=== PATIENT | female | born 1960 | race Caucasian/White ===

== ENCOUNTER 2020-11-07 14:49 | Observation (INO) | payer MEDICARE ==
[~2020-11-07] VITALS: Ht 154.9 cm; Wt 69.7 kg
[2020-11-07] MEDS ORDERED: CLONI1TA PO (15:14)
[2020-11-07] MEDS ORDERED: EPIP0.3I2 INJ (15:14)
[2020-11-07] MEDS ORDERED: ALBU83IN NEB (15:14)
[2020-11-07] MEDS ORDERED: HYDR12.55 PO (15:14)
[2020-11-07] MEDS ORDERED: ZOLO50TA PO (15:14)
[2020-11-07] MEDS ORDERED: ZOLO100T PO (15:14)
[2020-11-07] MEDS ORDERED: MIRT1TAB16 PO (15:14)
[2020-11-07] MEDS ORDERED: ONDANSETRON 4MG/2ML VIAL IV ONE (17:20)
[2020-11-07 17:30] LABS: BASO # 0.1 10^3/uL (0.0-0.2); BASO % 0.9 % (0.0-1.0); EOS # 0.3 10^3/uL (0.0-0.5); EOS % 4.5 % (0.0-3.0); HEMATOCRIT 42.6 % (36.0-47.0); LYMPH # 2.2 10^3/uL (1.5-5.0); LYMPH % 37.5 % (24.0-44.0); MEAN CORPUSCULAR HEMOGLOBIN 31.1 pg (27.0-33.0); MEAN CORPUSCULAR HGB CONC 32.9 g/dl (32.0-36.5); MEAN CORPUSCULAR VOLUME 94.7 fl (80.0-96.0); MONO # 0.6 10^3/uL (0.0-0.8); MONO % 9.6 % (2.0-8.0); NEUTROPHILS # 2.7 10^3/uL (1.5-8.5); NEUTROPHILS % 47.2 % (36.0-66.0); PLATELET COUNT, AUTOMATED 312 10^3/uL (150-450); WHITE BLOOD COUNT 5.8 10^3/uL (4.0-10.0)
[2020-11-07 17:41] LABS: ALBUMIN 3.7 GM/DL (3.2-5.2); ALT/SGPT 54 U/L (12-78); BILIRUBIN,DIRECT < 0.1 MG/DL (0.0-0.2); BILIRUBIN,TOTAL 0.4 MG/DL (0.2-1.0); BLOOD UREA NITROGEN 11 MG/DL (7-18); CALCIUM LEVEL 9.9 MG/DL (8.8-10.2); CARBON DIOXIDE LEVEL 27 MEQ/L (21-32); CHLORIDE LEVEL 104 MEQ/L (98-107); CREATININE FOR GFR 0.64 MG/DL (0.55-1.30); GLOMERULAR FILTRATION RATE > 60.0 (>45); GLUCOSE, FASTING 86 MG/DL (70-100); LIPASE 63 U/L (73-393); POTASSIUM SERUM 4.8 MEQ/L (3.5-5.1); SODIUM LEVEL 137 MEQ/L (136-145); TOTAL PROTEIN 7.6 GM/DL (6.4-8.2)
[2020-11-07] MEDS ORDERED: NS 1,000 ML IV SCH (17:55)
[2020-11-07] MEDS ORDERED: ISOVUE-370 76% 100ML VIAL As Ordered ONE (18:03)
[2020-11-07] MEDS: fentaNYL 100 MCG/2 ML INJECTION (J3010) IV PRN ×2 (18:11→21:37)
[2020-11-07] MEDS: GASTROGRAFIN SOLUTION 30ML PO SCH ×2 (18:50→18:54)
[2020-11-07] MEDS ORDERED: ALBUTEROL SULFATE 2.5 MG/0.5 ML INH NEB SOLN INH ONE (19:05)
[2020-11-07] MEDS ORDERED: methylPREDNISolone 125MG 2ML VIAL IV ONE (19:05)
[2020-11-07] MEDS ORDERED: diphenhydrAMINE 50MG/ML VIAL (J1200) IV ONE (19:05)
--- NOTE | 2020-11-07 19:11 | REP ---
INDICATION: r/o SBO. COMPARISON: None. TECHNIQUE: PA chest and two view abdomen FINDINGS: PA chest: Lungs well inflated without pleural effusion or acute infiltrate. No apical scarring or parenchymal mass. The heart, mediastinal and hilar contours were normal. The aorta and airway intact. There has been prior anterior cervical fusion with plate and screw fixation and disc spacer. Degenerative changes in the thoracic spine and shoulders. No free air under the diaphragm. Two-view abdomen: Gas pattern is nonspecific. Stool and gas seen in the colon without dilated bowel loops, air-fluid levels, mass or free air. Bones show extensive spondylosis with marginal osteophytes throughout the lower thoracic and lumbar spines. No definite compression fractures. There is disc space narrowing at L4-5 with vacuum phenomenon. No abnormal calcifications over the renal fossa the or expected course of the ureters. Multiple pelvic phleboliths on each side of the true pelvis. Sacral ala and foramina symmetric SI joints intact iliac wings unremarkable. The right hip shows minor degenerative change. There is a left total hip arthroplasty. IMPRESSION: 1. Nonspecific gas pattern, no sign of obstruction, mass or free air. No abnormal calcification overlying expected urinary tract location. No visible mass. 2. Degenerative changes throughout the spine and mild at the hip on the right. A left total hip arthroplasty seen. 3. PA chest without acute finding. <Electronically signed by Tenzin Ramos > 11/07/20 [id number]
[2020-11-07] MEDS: COMBIVENT RESPIMAT 100-20MCG INHALER 4GM INH SCH (20:00)
--- NOTE | 2020-11-07 20:52 | REPVR ---
PROCEDURE INFORMATION: Exam: CT Abdomen And Pelvis With Contrast Exam date and time: 11/07/2020 8:03 PM Age: 60 years old Clinical indication: Other: Abd pain R/O sbo; HX 12 abd surgeries TECHNIQUE: Imaging protocol: Computed tomography of the abdomen and pelvis with contrast. Radiation optimization: All CT scans at this facility use at least one of these dose optimization techniques: automated exposure control; mA and/or kV adjustment per patient size (includes targeted exams where dose is matched to clinical indication); or iterative reconstruction. Contrast material: ISOVUE 370; Contrast volume: 100 ml; Contrast route: INTRAVENOUS (IV); COMPARISON: CR Abdomen,Flat Upright,PA CHEST 11/07/2020 5:28 PM FINDINGS: Limitations: Evaluation of the lower pelvis is suboptimally visualized secondary to artifact from a left total hip prosthesis. Liver: Unremarkable. No mass. Gallbladder and bile ducts: Unremarkable. No calcified stones. No ductal dilation. Pancreas: Unremarkable. No ductal dilation. Spleen: Unremarkable. No splenomegaly. Adrenal glands: Normal. No mass. Kidneys and ureters: 10 mm cyst in the left kidney midpole. No left renal stone or hydronephrosis. Normal right kidney and right ureter. Stomach and bowel: Tiny gastric hiatus hernia. The small bowel and colon are unremarkable. No bowel obstruction. Appendix: No evidence of appendicitis. Intraperitoneal space: Unremarkable. No free air. No significant fluid collection. Vasculature: Mild atherosclerosis of the abdominal aorta and branch vessels. No aneurysm. Lymph nodes: Unremarkable. No enlarged lymph nodes. Urinary bladder: Unremarkable as visualized. Reproductive: Probable previous hysterectomy (versus severe uterine atrophy). No adnexal mass. Bones/joints: Degenerative changes throughout the lower thoracic and lumbar spine. No acute fracture. Left total hip prosthesis resulting in artifact which slightly limits evaluation of the lower pelvis and portions of the urinary bladder. Soft tissues: Unremarkable. IMPRESSION: No acute abnormality. COMMENTS: Consistent with the [employer]'s Incidental Findings Committee white paper (J Am Ovidio Radiol 2018): Any incidental renal lesion less than 1 cm or classified as too small to characterize, or any incidental cystic renal lesion characterized as simple-appearing, is likely benign. No follow-up imaging is recommended for these lesions per consensus recommendations based on imaging criteria. Electronically signed by: Gregg Feng On 11/07/2020 20:52:04 PM
[2020-11-07 23:36] LABS: RSV AMPLIFICATION NEGATIVE (NEGATIVE)
[2020-11-07] MEDS ORDERED: TRAM50TA2 PO (23:52)
[2020-11-07] MEDS ORDERED: HYDR-3490 PO (23:52)
[2020-11-07] MEDS ORDERED: DIPH25CA32 PO (23:52)
[2020-11-07] MEDS ORDERED: PROP20TA72 PO (23:52)
[2020-11-07] MEDS ORDERED: VITA-256 PO (23:52)
[2020-11-07] MEDS ORDERED: COMBAER6 INH (23:52)
[2020-11-07] MEDS ORDERED: ALBU8.5H INH (23:52)
[2020-11-07] MEDS ORDERED: MIRT-60 PO (23:52)
[2020-11-08] MEDS ORDERED: ALBUTEROL 90 MCG/ACT 8GM HFA INHALER INH PRN
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
[2020-11-08] MEDS: MIRTAZAPINE 15 MG TAB PO SCH ×2 (00:27→21:08)
[2020-11-08] MEDS: cloNIDine 0.1MG TABLET PO SCH ×4 (00:27→21:08)
[2020-11-08] MEDS: ONDANSETRON 4MG/2ML VIAL IV PRN ×3 (00:28→19:53)
[2020-11-08] MEDS: MORPHINE 4 MG/ML 1ML VIAL/SYRINGE (J2270) IV PRN ×3 (00:28→06:02)
[2020-11-08] MEDS: NS 1,000 ML IV SCH ×2 (00:30→12:15)
[2020-11-08] MEDS: SERTRALINE 100 MG TAB PO SCH ×3 (01:38→21:07)
[2020-11-08] MEDS: PROPRANOLOL 20 MG TAB PO SCH ×3 (04:09→21:09)
[2020-11-08 07:47] LABS: HEMATOCRIT 39.6 % (36.0-47.0); LYMPH # 0.8 10^3/uL (1.5-5.0); LYMPH % 11.3 % (24.0-44.0); MEAN CORPUSCULAR HEMOGLOBIN 31.3 pg (27.0-33.0); MEAN CORPUSCULAR HGB CONC 32.8 g/dl (32.0-36.5); MEAN CORPUSCULAR VOLUME 95.2 fl (80.0-96.0); MONO # 0.1 10^3/uL (0.0-0.8); MONO % 1.6 % (2.0-8.0); NEUTROPHILS # 6.1 10^3/uL (1.5-8.5); NEUTROPHILS % 86.8 % (36.0-66.0); PLATELET COUNT, AUTOMATED 261 10^3/uL (150-450); RED BLOOD COUNT 4.16 10^6/uL (4.00-5.40); WHITE BLOOD COUNT 7.1 10^3/uL (4.0-10.0)
[2020-11-08] MEDS: COMBIVENT RESPIMAT 100-20MCG INHALER 4GM INH SCH ×2 (07:57→19:49)
[2020-11-08 08:22] LABS: ALBUMIN 3.2 GM/DL (3.2-5.2); ALT/SGPT 40 U/L (12-78); BILIRUBIN,TOTAL 0.3 MG/DL (0.2-1.0); BLOOD UREA NITROGEN 10 MG/DL (7-18); CALCIUM LEVEL 8.4 MG/DL (8.8-10.2); CARBON DIOXIDE LEVEL 27 MEQ/L (21-32); CHLORIDE LEVEL 110 MEQ/L (98-107); CREATININE FOR GFR 0.53 MG/DL (0.55-1.30); GLOMERULAR FILTRATION RATE > 60.0 (>45); GLUCOSE, FASTING 122 MG/DL (70-100); MAGNESIUM LEVEL 2.1 MG/DL (1.8-2.4); POTASSIUM SERUM 3.8 MEQ/L (3.5-5.1); SODIUM LEVEL 142 MEQ/L (136-145); TOTAL PROTEIN 6.2 GM/DL (6.4-8.2)
--- NOTE | 2020-11-08 08:52 | IPNPDOC ---
Text Note Date of Service The patient was seen on 11/08/20. NOTE S: Pt seen at bedside. Reports additional intermittent sharp left-sided abd pain that radiates up to her rib cage, down to her groin, and across to her left flank. She tells me her generalized abd pain on admission has not changed, and describes this as intermittent abd pressure and tightening. Reports nausea appropriately controlled w/ zofran. She tells me she has not passed gas or stool. Reports improved abd distension. Denies difficulty voiding, vomiting. O: GEN: NAD, alert, laying in bed HEENT: Dry mucous membranes, NC/AT, EOMI, nasal cannula in place CARDIO: normal heart sounds, RRR, no MRG PULM: wheezing b/l, no RR, no accessory muscles used ABD: soft, non distended, generalized tenderness w/ deep palpation w/out rebou nd, normal BS MSK: no edema, 2+ pulses b/l, normal ROM Imaging: Abd xray 11/07/20: 1. Nonspecific gas pattern, no sign of obstruction, mass or free air. No abn ormal calcification overlying expected urinary tract location. No visible mass. 2. Degenerative changes throughout the spine and mild at the hip on the right. A left total hip arthroplasty seen. 3. PA chest without acute finding. CT abd/pelvis 11/07/20: No acute abnormality Abd xray 11/08/20: Nonspecific intestinal gas pattern. A/P: 60F from [place] hx multiple abd surgeries w/ worsening generalized abd pain that has not resolved w/ pain meds. #Acute on Chronic - Generalized abd pain - History of multiple abdominal surgeries - no leukocytosis / no lactic acidosis - Lipase wnl - Imaging noted above - Repeat abd xray insignificant Continue Zofran - D/c morphine; Start Bentyl #HTN Continue HCTZ #Asthma Continue home inhalers #Anxiety Continue home meds #Arthritis Continue home meds #DVT Prophylaxis Lovenox Clear liquids diet Activity as tolerated DISPO: home, pending clinical improvement VS,Fishbone, I+O VS, Fishbone, I+O Laboratory Tests 11/07/20 16:54 11/07/20 17:16 11/08/20 07:25 Vital Signs Date Time Temp Pulse Resp B/P (MAP) Pulse Ox O2 Delivery O2 Flow Rate FiO2 11/08/20 06:05 65 94 11/08/20 06:02 18 Nasal Cannula 2.0 11/08/20 06:00 97.3 91/67 (75) GME ATTESTATION GME ATTESTATION My faculty preceptor for this patient encounter was physically present during the encounter and was fully available. All aspects of the patient interview, examination, medical decision making process, and medical care plan development were reviewed and approved by the faculty preceptor. The faculty preceptor is aware and concurs with the plan as stated in the body of this note and will atte st to such by his/her cosignature. ATTENDING NOTE I, Tatiana Gonsalez, have independently examined this patient and performed my own physical exam, as well as reviewed the documentation and edited where necessary. I have discussed in detail with the resident / student the findings and plan of treatment as documented by the resident / student and edited their note. I agree with their findings and treatment plan and have edited their documentation. I will continue to follow the patient during this hospital stay. Anitra Chapman DO Nov 08, 2020 08:52 TATIANA GONSALEZ MD Nov 08, 2020 12:35
[2020-11-08] MEDS: ENOXAPARIN 40MG/0.4ML SYRINGE (J1650 PER 10MG) SC SCH (09:23)
[2020-11-08] MEDS: traMADol 50 MG TAB PO PRN (09:24)
[2020-11-08] MEDS ORDERED: DICYCLOMINE 10 MG CAP PO PRN (09:45)
--- NOTE | 2020-11-08 10:53 | REP ---
INDICATION: abd pain. COMPARISON: None. TECHNIQUE: Three views FINDINGS: Supine and upright views of the abdomen show the intestinal gas pattern to be nonspecific. Gas and stool is seen throughout the colon within the rectosigmoid region. The organ silhouettes insofar as delineated appear unremarkable. A small amount of retained contrast from previous CT is seen in the colon. There is partial urinary bladder contrast opacification secondary to the intravenous injection which was performed for that CT. The accompanying single frontal view of the chest shows no free subdiaphragmatic air, cardiomegaly, infiltrates or effusions. IMPRESSION: Nonspecific intestinal gas pattern. <Electronically signed by Geovany Franklin > 11/08/20 1048
[2020-11-08 14:48] VITALS: BP 109/66
[2020-11-08] MEDS: DICYCLOMINE 10 MG CAP PO PRN ×2 (17:02→21:07)
[2020-11-08 22:00] VITALS: BP 120/85
--- NOTE | 2020-11-08 23:51 | ECGEPIP ---
[facility] Test Date: 2020-11-08 Pat Name: RENETTA FRIAS Department: Room: [place] [address] Gender: Female Manager Service Desk: SHEBA : 1960 Requested By: Anitra De Luna Order Number: [id number] Reading MD: Axel Rehman Measurements Intervals [place] Rate: 63 P: 76 [place]: 166 QRS: 52 QRSD: 82 T: 57 QT: 422 QTc: 431 Interpretive Statements Normal sinus rhythm with sinus arrhythmia No prior tracing in the system Electronically Signed on 11-08-2020 23:51:17 EDT by Axel Rehman
[2020-11-09] MEDS: DICYCLOMINE 10 MG CAP PO PRN ×2 (01:11→05:16)
[2020-11-09] MEDS: ONDANSETRON 4MG/2ML VIAL IV PRN (05:16)
[2020-11-09 06:00] VITALS: BP 107/67
[2020-11-09 06:59] LABS: HEMATOCRIT 37.8 % (36.0-47.0); HEMOGLOBIN 12.6 g/dl (12.0-15.5); MEAN CORPUSCULAR HEMOGLOBIN 32.1 pg (27.0-33.0); MEAN CORPUSCULAR HGB CONC 33.3 g/dl (32.0-36.5); MEAN CORPUSCULAR VOLUME 96.4 fl (80.0-96.0); PLATELET COUNT, AUTOMATED 245 10^3/uL (150-450); RED BLOOD COUNT 3.92 10^6/uL (4.00-5.40); WHITE BLOOD COUNT 5.6 10^3/uL (4.0-10.0)
[2020-11-09 07:26] LABS: ALBUMIN 2.9 GM/DL (3.2-5.2); ALT/SGPT 37 U/L (12-78); BILIRUBIN,TOTAL 0.3 MG/DL (0.2-1.0); BLOOD UREA NITROGEN 10 MG/DL (7-18); CALCIUM LEVEL 8.2 MG/DL (8.8-10.2); CARBON DIOXIDE LEVEL 28 MEQ/L (21-32); CHLORIDE LEVEL 110 MEQ/L (98-107); CREATININE FOR GFR 0.64 MG/DL (0.55-1.30); GLOMERULAR FILTRATION RATE > 60.0 (>45); GLUCOSE, FASTING 88 MG/DL (70-100); POTASSIUM SERUM 3.4 MEQ/L (3.5-5.1); SODIUM LEVEL 144 MEQ/L (136-145); TOTAL PROTEIN 6.1 GM/DL (6.4-8.2)
[2020-11-09] MEDS: COMBIVENT RESPIMAT 100-20MCG INHALER 4GM INH SCH (07:43)
[2020-11-09] MEDS ORDERED: POTASSIUM CHLORIDE 10 MEQ SR TABLET PO ONE (08:35)
[2020-11-09] MEDS: SERTRALINE 100 MG TAB PO SCH (08:49)
[2020-11-09] MEDS: ENOXAPARIN 40MG/0.4ML SYRINGE (J1650 PER 10MG) SC SCH (08:49)
--- NOTE | 2020-11-09 08:58 | DS.PDOC ---
Discharge Summary General Date of Admission Nov 07, 2020 at 23:57 Date of Discharge 11/09/20 Attending Physician: TATIANA GONSALEZ MD Discharge Summary PROCEDURES PERFORMED DURING STAY: None ADMITTING DIAGNOSES / DISCHARGE DIAGNOSES: Acute on chronic generalized abd pain Asthma Anxiety and Depression Hypertension History of small bowel obstruction multiple times DVT prophylaxis COMPLICATIONS/CHIEF COMPLAINT: Abdominal Pain. HISTORY OF PRESENT ILLNESS: Aleksandra is 60F visiting from [place], [facility] significant for multiple abdominal surgeries, who presented to ED w/ worsening generalized abdominal pain for the past week. Described pain as achy, intermittent, 3-10/10, greater on left than right. Reported n/v, prior episodes related to bowel obstruction. Denied fevers/chills. HOSPITAL COURSE: #Acute on Chronic generalized abdominal pain - History of multiple abdominal surgeries - No leukocytosis / no lactic acidosis - Lipase wnl - Imaging noted above without any acute findings - Repeat abd xray insignificant - c/w symptomatic control with Zofran and Bentyl - s/p Morphine - Will have outpatient follow-up with primary care provider, and general surgery in [place] within the next 7 days #HTN Continue HCTZ #Asthma Continue home inhalers #Anxiety Continue home meds #Arthritis Continue home meds #DVT Prophylaxis - c/w Lovenox DISCHARGE MEDICATIONS: Please see below. ALLERGIES: Please see below. PHYSICAL EXAMINATION ON DISCHARGE: VITAL SIGNS: Please see below. GENERAL: laying in bed, alert and awake, NAD HEENT: NC/AT, EOMI, nares patent, moist mucous membranes NECK: supple no lymphadenopathy CARDIOVASCULAR EXAMINATION: normal heart sounds, RRR, no MRG RESPIRATORY EXAMINATION: wheezing upper lobes b/l, no RR, no accessory muscles used ABDOMINAL EXAMINATION: normal BS, generalized tenderness w/ deep palpation, soft, nondistended EXTREMITIES: no edema SKIN: no rashes/bruising/wounds NEUROLOGICAL EXAMINATION: no FND PSYCHIATRIC EXAMINATION: AOx3, normal mood/affect LABORATORY DATA: Please see below. IMAGING: Abd xray 11/07/20: 1. Nonspecific gas pattern, no sign of obstruction, mass or free air. No abnormal calcification overlying expected urinary tract location. No visible mass. 2. Degenerative changes throughout the spine and mild at the hip on the right. A left total hip arthroplasty seen. 3. PA chest without acute finding. CT abd/pelvis w/ IV and PO contrast 11/07/20: No acute abnormality Abd xray 11/08/20: Nonspecific intestinal gas pattern. PROGNOSIS: Good ACTIVITY: As tolerated DIET: Low residue DISCHARGE PLAN: Follow up with primary care provider within 7 days Remain compliant with treatment plan and medications Return to the ER if you experience any problems DISPOSITION: Home DISCHARGE CONDITION: Stable TIME SPENT ON DISCHARGE: 35 minutes. Vital Signs/I&Os Vital Signs Date Time Temp Pulse Resp B/P (MAP) Pulse Ox O2 Delivery O2 Flow Rate FiO2 11/09/20 06:00 98.2 71 17 107/67 (80) 92 Room Air 11/08/20 06:02 2.0 I&O- Last 24 Hours up to 6 AM 11/09/20 06:00 Intake Total 3410 ml Output Total 1350 ml Balance 2060 ml Laboratory Data Labs 24H Laboratory Tests 2 11/09/20 06:47: Nucleated Red Blood Cells % (auto) 0.0, Anion Gap 6L, Glomerular Filtration Rate > 60.0, Calcium Level 8.2L, Total Bilirubin 0.3, Aspartate Amino Transf (AST/SGOT) 25, Alanine Aminotransferase (ALT/SGPT) 37, Alkaline Phosphatase 61, Total Protein 6.1L, Albumin 2.9L, Albumin/Globulin Ratio 0.9L CBC/BMP Laboratory Tests 11/09/20 06:47 Discharge Medications Scheduled Cholecalciferol (Vitamin D3) (Vitamin D3) 25 Mcg Tab.chew, 25 MCG PO BID, (Reported) Clonidine Hcl (Clonidine HCl) 0.1 Mg Tablet, 0.1 MG PO BID, (Reported) Hydrochlorothiazide (Hydrochlorothiazide) 25 Mg Tablet, 25 MG PO DAILY, (Reported) Ipratropium/Albuterol Sulfate (Combivent Respimat 20-100 Mcg) 4 Gm Mist.inhal, 1 PUFF INH BID, (Reported) Mirtazapine (Remeron) 30 Mg Tablet, 30 MG PO QHS, (Reported) Ondansetron HCl (Zofran) 4 Mg Tablet, 4 MG PO Q6H Propranolol HCl (Propranolol HCl) 20 Mg Tablet, 20 MG PO BID, (Reported) Sertraline Hcl (Zoloft) 100 Mg Tablet, 100 MG PO BID, (Reported) Scheduled PRN Albuterol Sulfate (Albuterol Sulfate Hfa) 8.5 Gm Hfa.aer.ad, 2 PUFFS INH Q4-6HP PRN for SOB/WHEEZING, (Reported) Dicyclomine HCl (Dicyclomine HCl) 10 Mg Capsule, 10 MG PO Q4HP PRN for CRAMPS Diphenhydramine HCl (Diphenhydramine HCl) 25 Mg Capsule, 25 MG PO Q6H PRN for ALLERGIC REACTION, (Reported) Epinephrine (Epipen 2-Nik) 0.3 Mg/0.3 Ml Auto.injct, 0.3 MG INJ DAILY PRN for ANAPHYLAXIS, (Reported) Tramadol HCl (Tramadol HCl) 50 Mg Tablet, 50 MG PO DAILY PRN for OSTEOARTHRITIS, (Reported) Allergies Coded Allergies: Influenza Virus Vaccines (Unverified Allergy, Severe, anaphylaxis from banana allergy, 11/08/20) TAPE (Verified Allergy, Severe, anaphylaxis, 11/07/20) banana (Verified Allergy, Severe, anaphylaxis, 11/07/20) bee pollen (Verified Allergy, Severe, anaphylaxis, 11/07/20) latex (Verified Allergy, Severe, anaphylaxis, 11/07/20) Sulfa (Sulfonamide Antibiotics) (Verified Allergy, Intermediate, hives, 11/07/20) codeine (Verified Allergy, Intermediate, itching , 11/07/20) erythromycin base (Verified Allergy, Intermediate, 11/07/20) unknown reaction per pt. GME ATTESTATION GME ATTESTATION My faculty preceptor for this patient encounter was physically present during the encounter and was fully available. All aspects of the patient interview, examination, medical decision making process, and medical care plan development were reviewed and approved by the faculty preceptor. The faculty preceptor is aware and concurs with the plan as stated in the body of this note and will attest to such by his/her cosignature. ATTENDING NOTE I, Tatiana Gonsalez, have independently examined this patient and performed my own physical exam, as well as reviewed the documentation and edited where necessary. I have discussed in detail with the resident / student the findings and plan of treatment as documented by the resident / student and edited their note. I agree with their findings and treatment plan and have edited their documentation. I will continue to follow the patient during this hospital stay. Anitra Chapman DO Nov 09, 2020 08:58 TATIANA GONSALEZ MD Nov 09, 2020 14:28
[2020-11-09 08:59] VITALS: BP 120/68
[2020-11-09] MEDS: cloNIDine 0.1MG TABLET PO SCH (08:59)
[2020-11-09] MEDS: PROPRANOLOL 20 MG TAB PO SCH (09:00)
[2020-11-09] MEDS ORDERED: ZOFR4TAB16 PO (10:22)
[2020-11-09] MEDS ORDERED: DICY1CAP8 PO (10:22)
[2020-11-09] MEDS: traMADol 50 MG TAB PO PRN (12:07)
== END 2020-11-09 13:35 | disposition home or self-care (01) ==
LOC: M ED 14:49 → M ED INP 23:57 → ENRESERV 11-08 14:15 → M MSPAV 11-08 14:47
PROVIDERS: ADMIT Family Medicine; ATTEND Internal Medicine
DX: R10.84 Generalized abdominal pain (principal); J45.909 Unspecified asthma, uncomplicated; I10 Essential (primary) hypertension; F32.9 Major depressive disorder, single episode, unspecified; F41.9 Anxiety disorder, unspecified; Z87.19 Personal history of other diseases of the digestive system; Z79.899 Other long term (current) drug therapy; Z88.7 Allergy status to serum and vaccine; Z91.018 Allergy to other foods; Z91.030 Bee allergy status; Z91.040 Latex allergy status; Z88.2 Allergy status to sulfonamides; Z88.5 Allergy status to narcotic agent; Z88.1 Allergy status to other antibiotic agents
CPT/HCPCS: 36415; 74021; 74177; 80048; 80053; 80076; 83605; 83690; 83735; 85025; 85027; 87631; 93005; 94640; 96361; 96372; 96374; 96375; 96376; 99285; G0378; J1200; J1650; J2270; J2405; J2930; J3010; Q9963; Q9967

== ENCOUNTER 2021-10-16 10:04 | Inpatient (IN) | payer MEDICARE ==
[~2021-10-16] VITALS: Ht 154.9 cm; Wt 63.0 kg
[~2021-10-16 10:04] MED LIST: ALBU2.5V10 NEB; ALBU8.5H INH; CLONI1TA PO; COMBAER6 INH; DICY1CAP8 PO; DIPH25CA32 PO; EPIP0.3I2 INJ; HYDR-3490 PO; HYDR12.55 PO; MIRT-60 PO; MIRT1TAB16 PO; PROP20TA72 PO; TRAM50TA2 PO; VITA-256 PO; ZOFR4TAB16 PO; ZOLO100T PO; ZOLO50TA PO
[2021-10-16] MEDS ORDERED: MAG SULF 1GM/100ML (MAG RUN) 1 GM in IV 1 EA IV ONE (11:30)
[2021-10-16] MEDS ORDERED: IPRATROPIUM 0.5MG/ALBUTEROL 2.5MG INH SOL UD 3ML (DUONEB) NEB ONE ×2 (11:30→14:15)
[2021-10-16] MEDS ORDERED: methylPREDNISolone 125MG 2ML VIAL IV ONE (11:30)
[2021-10-16 12:14] LABS: BASO % 0.5 % (0.0-1.0); EOS # 0.4 10^3/uL (0.0-0.5); HEMATOCRIT 48.6 % (36.0-47.0); HEMOGLOBIN 15.7 g/dl (12.0-15.5); MEAN CORPUSCULAR HEMOGLOBIN 29.2 pg (27.0-33.0); MEAN CORPUSCULAR HGB CONC 32.3 g/dl (32.0-36.5); MEAN CORPUSCULAR VOLUME 90.5 fl (80.0-96.0); MONO # 0.8 10^3/uL (0.0-0.8); MONO % 12.5 % (2.0-8.0); NEUTROPHILS # 3.4 10^3/uL (1.5-8.5); NEUTROPHILS % 50.7 % (36.0-66.0); PLATELET COUNT, AUTOMATED 332 10^3/uL (150-450); RED BLOOD COUNT 5.37 10^6/uL (4.00-5.40); WHITE BLOOD COUNT 6.6 10^3/uL (4.0-10.0)
[2021-10-16 12:37] LABS: BLOOD UREA NITROGEN 16 MG/DL (7-18); CALCIUM LEVEL 10.4 MG/DL (8.8-10.2); CARBON DIOXIDE LEVEL 31 MEQ/L (21-32); CHLORIDE LEVEL 102 MEQ/L (98-107); CREATININE FOR GFR 0.68 MG/DL (0.55-1.30); GLOMERULAR FILTRATION RATE > 60.0 (>45); GLUCOSE, FASTING 103 MG/DL (70-100); POTASSIUM SERUM 4.4 MEQ/L (3.5-5.1); SODIUM LEVEL 138 MEQ/L (136-145)
[2021-10-16 12:41] LABS: CK-MB VALUE MASS < 1.0 NG/ML (<3.6); CPK CREATINE PHOSPHOKINASE 39 U/L (26-192); MB/CK RELATIVE INDEX 2.56 (< OR =4)
[2021-10-16] MEDS ORDERED: ONDANSETRON 4MG 2ML VIAL IV ONE (13:05)
[2021-10-16] MEDS ORDERED: ACETAMINOPHEN TAB 650MG DOSE (2X325MG) PO ONE (13:05)
[2021-10-16] MEDS ORDERED: IPRATROPIUM 0.5MG/ALBUTEROL 2.5MG INH SOL UD 3ML (DUONEB) NEB PRN (14:20)
[2021-10-16] MEDS ORDERED: ISOVUE-370 76% 100ML VIAL As Ordered ONE (14:24)
[2021-10-16] MEDS ORDERED: PROP40TA62 PO (15:17)
[2021-10-16] MEDS ORDERED: CYCL5TAB PO (15:19)
[2021-10-16] MEDS ORDERED: ADVA115A INH (15:20)
[2021-10-16] MEDS ORDERED: HOME MED LIST COMPLETE! XX SCH (15:20)
[2021-10-16] MEDS: IPRATROPIUM 0.5MG/ALBUTEROL 2.5MG INH SOL UD 3ML (DUONEB) NEB SCH ×2 (15:24→19:34)
[2021-10-16] MEDS ORDERED: **SFRHE** EPINEPHrine (EPIPEN) 0.3MG/0.3ML SYRINGE INJ PRN (15:25)
[2021-10-16] MEDS ORDERED: diphenhydrAMINE 25MG CAP PO PRN (15:25)
[2021-10-16] MEDS: CYCLOBENZAPRINE 5MG TABLET PO SCH ×2 (16:00→20:10)
[2021-10-16 19:07] VITALS: BP 132/85
[2021-10-16] MEDS: MIRTAZAPINE 15 MG TAB PO SCH (20:10)
[2021-10-16] MEDS: SERTRALINE 100 MG TAB PO SCH (20:10)
[2021-10-16] MEDS: PROPRANOLOL 20 MG TAB PO SCH (20:10)
[2021-10-16] MEDS: cloNIDine 0.1MG TABLET PO SCH (20:10)
[2021-10-16] MEDS: HEPARIN SOD (PORCINE) 5000UNITS/ML 1ML VIAL/SYRINGE SQ SCH (20:11)
[2021-10-16] MEDS: methylPREDNISolone 125MG 2ML VIAL IV SCH (22:31)
[2021-10-17] VITALS (7 sets, daily range): BP systolic 110–120; BP diastolic 69–72; O2SAT 91–92
[2021-10-17 06:03] LABS: HEMATOCRIT 43.2 % (36.0-47.0); HEMOGLOBIN 14.6 g/dl (12.0-15.5); MEAN CORPUSCULAR HEMOGLOBIN 29.3 pg (27.0-33.0); MEAN CORPUSCULAR HGB CONC 33.8 g/dl (32.0-36.5); MEAN CORPUSCULAR VOLUME 86.6 fl (80.0-96.0); PLATELET COUNT, AUTOMATED 294 10^3/uL (150-450); RED BLOOD COUNT 4.99 10^6/uL (4.00-5.40); WHITE BLOOD COUNT 10.4 10^3/uL (4.0-10.0)
[2021-10-17 06:26] LABS: BLOOD UREA NITROGEN 18 MG/DL (7-18); CALCIUM LEVEL 9.7 MG/DL (8.8-10.2); CARBON DIOXIDE LEVEL 27 MEQ/L (21-32); CHLORIDE LEVEL 100 MEQ/L (98-107); CREATININE FOR GFR 0.62 MG/DL (0.55-1.30); GLOMERULAR FILTRATION RATE > 60.0 (>45); GLUCOSE, FASTING 195 MG/DL (70-100); POTASSIUM SERUM 3.7 MEQ/L (3.5-5.1); SODIUM LEVEL 134 MEQ/L (136-145)
[2021-10-17] MEDS: IPRATROPIUM 0.5MG/ALBUTEROL 2.5MG INH SOL UD 3ML (DUONEB) NEB SCH ×4 (07:36→20:00)
[2021-10-17 07:49] LABS: MAGNESIUM LEVEL 1.9 MG/DL (1.8-2.4)
[2021-10-17] MEDS: ADVAIR HFA 115/21MCG INHALER INH SCH ×2 (08:00→20:23)
[2021-10-17] MEDS: HEPARIN SOD (PORCINE) 5000UNITS/ML 1ML VIAL/SYRINGE SQ SCH ×2 (08:49→20:43)
[2021-10-17] MEDS: MULTIVITAMINS/MINERALS THERAP 1 TAB PO SCH (08:50)
[2021-10-17] MEDS: SERTRALINE 100 MG TAB PO SCH ×2 (08:50→20:42)
[2021-10-17] MEDS: CYCLOBENZAPRINE 5MG TABLET PO SCH ×3 (08:50→20:42)
[2021-10-17] MEDS: cloNIDine 0.1MG TABLET PO SCH ×2 (08:50→20:35)
[2021-10-17] MEDS: PROPRANOLOL 20 MG TAB PO SCH ×2 (08:50→20:42)
[2021-10-17] MEDS: THIAMINE 100 MG TAB PO SCH (08:51)
[2021-10-17] MEDS: FOLIC ACID 1 MG TAB PO SCH (08:51)
[2021-10-17] MEDS ORDERED: CEPACOL LOZENGE PO PRN (10:40)
[2021-10-17] MEDS: methylPREDNISolone 125MG 2ML VIAL IV SCH ×2 (11:15→22:22)
[2021-10-17] MEDS ORDERED: DOCUSATE SODIUM 100MG CAPSULE PO PRN (20:40)
[2021-10-17] MEDS ORDERED: MOM 30ML SUSPENSION UDC PO PRN (20:40)
[2021-10-17] MEDS ORDERED: MIRALAX *UNIT DOSE* 17GM PACKET PO PRN (20:40)
[2021-10-17] MEDS: MIRTAZAPINE 15 MG TAB PO SCH (20:42)
[2021-10-17] MEDS ORDERED: ACETAMINOPHEN TAB 650MG DOSE (2X325MG) PO PRN (22:25)
[2021-10-18 06:14] LABS: HEMATOCRIT 42.7 % (36.0-47.0); HEMOGLOBIN 14.2 g/dl (12.0-15.5); MEAN CORPUSCULAR HEMOGLOBIN 29.3 pg (27.0-33.0); MEAN CORPUSCULAR HGB CONC 33.3 g/dl (32.0-36.5); MEAN CORPUSCULAR VOLUME 88.2 fl (80.0-96.0); PLATELET COUNT, AUTOMATED 288 10^3/uL (150-450); RED BLOOD COUNT 4.84 10^6/uL (4.00-5.40); WHITE BLOOD COUNT 11.6 10^3/uL (4.0-10.0)
[2021-10-18 06:37] LABS: BLOOD UREA NITROGEN 22 MG/DL (7-18); CALCIUM LEVEL 9.5 MG/DL (8.8-10.2); CARBON DIOXIDE LEVEL 26 MEQ/L (21-32); CHLORIDE LEVEL 104 MEQ/L (98-107); CREATININE FOR GFR 0.65 MG/DL (0.55-1.30); GLOMERULAR FILTRATION RATE > 60.0 (>45); GLUCOSE, FASTING 170 MG/DL (70-100); SODIUM LEVEL 136 MEQ/L (136-145)
[2021-10-18 06:39] VITALS: BP 116/83
[2021-10-18] MEDS: IPRATROPIUM 0.5MG/ALBUTEROL 2.5MG INH SOL UD 3ML (DUONEB) NEB SCH (08:00)
[2021-10-18] MEDS: ADVAIR HFA 115/21MCG INHALER INH SCH (08:08)
[2021-10-18] MEDS: HEPARIN SOD (PORCINE) 5000UNITS/ML 1ML VIAL/SYRINGE SQ SCH (09:00)
[2021-10-18 09:15] VITALS: O2SAT 93
[2021-10-18 09:46] VITALS: BP 129/71
[2021-10-18] MEDS: PROPRANOLOL 20 MG TAB PO SCH (09:46)
[2021-10-18] MEDS: cloNIDine 0.1MG TABLET PO SCH (09:46)
[2021-10-18] MEDS: FOLIC ACID 1 MG TAB PO SCH (09:47)
[2021-10-18] MEDS: THIAMINE 100 MG TAB PO SCH (09:47)
[2021-10-18] MEDS: CYCLOBENZAPRINE 5MG TABLET PO SCH (09:47)
[2021-10-18] MEDS: MULTIVITAMINS/MINERALS THERAP 1 TAB PO SCH (09:47)
[2021-10-18] MEDS: SERTRALINE 100 MG TAB PO SCH (09:47)
[2021-10-18] MEDS: methylPREDNISolone 125MG 2ML VIAL IV SCH (11:33)
[2021-10-18] MEDS ORDERED: PRED10TA2 PO (11:47)
[2021-10-18] MEDS ORDERED: FOLI1TAB11 PO (11:50)
[2021-10-18] MEDS ORDERED: THIA100T7 PO (11:51)
== END 2021-10-18 14:19 | disposition home or self-care (01) | DRG 203 ==
LOC: M ED 10:04 → M ED INP 14:10 → M MSPAV 19:06
PROVIDERS: ADMIT Internal Medicine; ATTEND Internal Medicine
DX: J45.901 Unspecified asthma with (acute) exacerbation (principal); I10 Essential (primary) hypertension; F17.200 Nicotine dependence, unspecified, uncomplicated; F41.9 Anxiety disorder, unspecified; F32.A Depression, unspecified; Z91.018 Allergy to other foods; Z88.5 Allergy status to narcotic agent; Z91.040 Latex allergy status; Z91.030 Bee allergy status; Z88.2 Allergy status to sulfonamides; Z88.7 Allergy status to serum and vaccine; Z79.899 Other long term (current) drug therapy; G47.00 Insomnia, unspecified

== ENCOUNTER 2022-08-02 10:03 | Emergency (ER) | payer MEDICAID, MEDICARE ==
[~2022-08-02] VITALS: Ht 154.9 cm; Wt 68.2 kg
[~2022-08-02 10:03] MED LIST changes: +ADVA115A INH; +CYCL5TAB PO; +DIPH-435 PO; -DIPH25CA32 PO; +FOLI1TAB11 PO; +PRED10TA2 PO; +PROP40TA62 PO; +THIA100T7 PO
[2022-08-02] MEDS ORDERED: IPRATROPIUM 0.5MG/ALBUTEROL 2.5MG INH SOL UD 3ML (DUONEB) NEB ONE (11:55)
[2022-08-02] MEDS ORDERED: KETOROLAC 30 MG/ML 1ML VIAL IV ONE (11:55)
[2022-08-02] MEDS: IPRATROPIUM 0.5MG/ALBUTEROL 2.5MG INH SOL UD 3ML (DUONEB) NEB SCH ×3 (13:27→14:43)
[2022-08-02] MEDS ORDERED: NORCO, ANEXSIA 5/325MG TABLET (HYDROcodone/ACETAMINOPHEN) PO ONE (13:55)
[2022-08-02] MEDS ORDERED: HYDR-3713 PO (14:16)
[2022-08-02 14:45] VITALS: BP 108/59
== END 2022-08-02 15:23 | disposition home or self-care (01) ==
LOC: M ED 10:03 → EDBD 10:03 → M ED 15:23
DX: S22.31XA Fracture of one rib, right side, initial encounter for closed fracture (principal); J44.1 Chronic obstructive pulmonary disease with (acute) exacerbation; W01.198A Fall on same level from slipping, tripping and stumbling with subsequent striking against other object, initial encounter; I10 Essential (primary) hypertension; F43.10 Post-traumatic stress disorder, unspecified; F17.200 Nicotine dependence, unspecified, uncomplicated; F10.10 Alcohol abuse, uncomplicated; Z87.42 Personal history of other diseases of the female genital tract; Z88.2 Allergy status to sulfonamides; Z88.1 Allergy status to other antibiotic agents; Z79.52 Long term (current) use of systemic steroids; Z79.899 Other long term (current) drug therapy; Z79.82 Long term (current) use of aspirin
CPT/HCPCS: 71101; 94010; 94640; 96374; 96375; 99285; J1100; J1885

== ENCOUNTER 2022-12-03 20:36 | Emergency (ER) | payer MEDICARE ==
[~2022-12-03] VITALS: Ht 154.9 cm; Wt 72.8 kg
[~2022-12-03 20:36] MED LIST changes: +HYDR-3713 PO
[2022-12-03] MEDS ORDERED: IPRATROPIUM 0.5MG/ALBUTEROL 2.5MG INH SOL UD 3ML (DUONEB) NEB ONE (20:55)
[2022-12-03] MEDS ORDERED: methylPREDNISolone 125MG 2ML VIAL IV ONE (20:55)
[2022-12-03] MEDS ORDERED: ALBUTEROL SULFATE 2.5MG/0.5ML INH NEB SOLN INH ONE (20:55)
[2022-12-03] MEDS ORDERED: FAMO1TAB11 (20:56)
[2022-12-03 21:08] LABS: BASO # 0.1 10^3/uL (0.0-0.2); BASO % 0.6 % (0.0-1.0); EOS # 0.4 10^3/uL (0.0-0.5); HEMATOCRIT 45.7 % (36.0-47.0); HEMOGLOBIN 15.3 g/dl (12.0-15.5); LYMPH # 3.2 10^3/uL (1.5-5.0); LYMPH % 33.4 % (24.0-44.0); MEAN CORPUSCULAR HGB CONC 33.5 g/dl (32.0-36.5); MEAN CORPUSCULAR VOLUME 92.7 fl (80.0-96.0); MONO # 0.8 10^3/uL (0.0-0.8); MONO % 8.5 % (2.0-8.0); NEUTROPHILS # 5.1 10^3/uL (1.5-8.5); PLATELET COUNT, AUTOMATED 340 10^3/uL (150-450); RED BLOOD COUNT 4.93 10^6/uL (4.00-5.40); WHITE BLOOD COUNT 9.5 10^3/uL (4.0-10.0)
[2022-12-03 21:10] LABS: VENOUS BASE EXCESS -6.1 (-2.0-2.0); VENOUS HCO3 20.2 MMOL/L (23.0-27.0); VENOUS O2 SATURATION 92.7 % (60.0-80.0); VENOUS PARTIAL PRESSURE CO2 42.3 mmHg (38.0-50.0); VENOUS PH 7.296 UNITS (7.330-7.430); VENOUS STANDARD HCO3 19.5 MMOL/L; VENOUS TOTAL CO2 21.5 MMOL/L (24.0-28.0)
[2022-12-03 21:25] LABS: CK-MB VALUE MASS < 1.0 NG/ML (<3.6); ETHYL ALCOHOL (ETHANOL) 0.003 % (0.000-0.010)
[2022-12-03 21:27] LABS: ALBUMIN 3.6 G/DL (3.2-5.2); ALKALINE PHOSPHATASE 88 U/L (46-116); ALT/SGPT 27 U/L (7.0-40); AST/SGOT 16 U/L (<34); BILIRUBIN,DIRECT < 0.1 MG/DL (<0.4); BILIRUBIN,TOTAL 0.2 MG/DL (0.3-1.2); BLOOD UREA NITROGEN 24 MG/DL (9-23); CALCIUM LEVEL 8.8 MG/DL (8.3-10.6); CARBON DIOXIDE LEVEL 22 MMOL/L (20-31); CHLORIDE LEVEL 106 MMOL/L (98-107); CPK CREATINE PHOSPHOKINASE 86 U/L (34-145); CREATININE FOR GFR 1.12 MG/DL (0.55-1.30); GLOMERULAR FILTRATION RATE 52.5 (>45); GLUCOSE, FASTING 208 MG/DL (74-106); MB/CK RELATIVE INDEX 1.16 (< OR =4); POTASSIUM SERUM 3.2 MMOL/L (3.5-5.1); SODIUM LEVEL 140 MMOL/L (136-145); TOTAL PROTEIN 7.2 G/DL (5.7-8.2)
[2022-12-03 21:29] LABS: THYROID STIMULATING HORMONE 6.026 uIU/ML (0.55-4.78)
[2022-12-03] MEDS ORDERED: ISOVUE-370 76% 100ML VIAL As Ordered ONE (22:30)
[2022-12-04 00:20] LABS: MB/CK RELATIVE INDEX 1.34 (< OR =4)
[2022-12-04] MEDS ORDERED: HEPARIN SOD (PORCINE) 5000UNITS/ML 1ML VIAL/SYRINGE IV ONE (00:25)
[2022-12-04] MEDS ORDERED: HEPARIN DRIP 25,000 UNITS in IV 1 EA IV SCH (00:25)
[2022-12-04] MEDS: ASPIRIN 81MG CHEW TABLET PO ONE ×2 (00:37→01:15)
[2022-12-04 01:46] LABS: INR 1.02; PROTHROMBIN TIME 13.1 SECONDS (12.5-14.5)
[2022-12-04 01:47] LABS: PARTIAL THROMBOPLASTIN TIME 26.6 SECONDS (24.8-34.2)
[2022-12-04 02:01] VITALS: BP 98/77; TEMP 98.1; O2SAT 95
[2022-12-04] MEDS ORDERED: LORazepam 2 MG/ML 1ML VIAL IV STA (02:06)
== END 2022-12-04 02:21 | disposition short-term general hospital (02) ==
LOC: EDBD 20:36 → M ED 20:36
DX: I21.4 Non-ST elevation (NSTEMI) myocardial infarction (principal); J44.1 Chronic obstructive pulmonary disease with (acute) exacerbation; I10 Essential (primary) hypertension; J45.909 Unspecified asthma, uncomplicated; F17.200 Nicotine dependence, unspecified, uncomplicated; F10.10 Alcohol abuse, uncomplicated; F43.10 Post-traumatic stress disorder, unspecified; Z88.2 Allergy status to sulfonamides; Z88.5 Allergy status to narcotic agent; Z88.7 Allergy status to serum and vaccine; Z91.040 Latex allergy status; Z79.52 Long term (current) use of systemic steroids; Z79.899 Other long term (current) drug therapy
CPT/HCPCS: 71045; 71275; 80048; 80076; 82077; 82550; 82553; 82803; 83605; 83880; 84443; 84484; 85025; 85610; 85730; 87040; 87486; 87581; 87633; 87798; 93005; 93041; 94640; 94760; 96374; 96375; 99285; J2060; J2930; Q9967

== ENCOUNTER → 2022-12-31 | Outpatient (REF) | payer MEDICARE ==
[~2022-12-31] MED LIST changes: +FAMO1TAB11
[2022-12-31 15:27] LABS: BLOOD UREA NITROGEN 14 MG/DL (9-23); CALCIUM LEVEL 9.2 MG/DL (8.3-10.6); CARBON DIOXIDE LEVEL 27 MMOL/L (20-31); CHLORIDE LEVEL 106 MMOL/L (98-107); CREATININE FOR GFR 0.82 MG/DL (0.55-1.30); GLOMERULAR FILTRATION RATE > 60.0 (>45); GLUCOSE, FASTING 80 MG/DL (74-106); POTASSIUM SERUM 4.7 MMOL/L (3.5-5.1); SODIUM LEVEL 140 MMOL/L (136-145)
== END ==
LOC: M LABDRWAD 12:37
PROVIDERS: ATTEND Internal Medicine Cardiovascular Disease
DX: I10 Essential (primary) hypertension (principal)

== ENCOUNTER → 2023-04-16 | Outpatient (REF) | payer MEDICARE ==
[2023-04-16 19:46] LABS: ALBUMIN 3.7 G/DL (3.2-5.2); ALKALINE PHOSPHATASE 87 U/L (46-116); ALT/SGPT 44 U/L (7.0-40); AST/SGOT 35 U/L (<34); BILIRUBIN,TOTAL 0.4 MG/DL (0.3-1.2); BLOOD UREA NITROGEN 14 MG/DL (9-23); CALCIUM LEVEL 9.2 MG/DL (8.3-10.6); CARBON DIOXIDE LEVEL 24 MMOL/L (20-31); CHLORIDE LEVEL 106 MMOL/L (98-107); CHOLESTEROL LEVEL 208 MG/DL (<200); CHOLESTEROL RISK RATIO 2.81 (<5); CREATININE FOR GFR 0.81 MG/DL (0.55-1.30); GLOMERULAR FILTRATION RATE > 60.0 (>45); GLUCOSE, FASTING 99 MG/DL (74-106); HDL CHOLESTEROL 73.8 MG/DL (>40); LDL CHOLESTEROL 96.4 MG/DL (<100); NON-HDL-C 134.2 MG/DL; POTASSIUM SERUM 4.4 MMOL/L (3.5-5.1); SODIUM LEVEL 139 MMOL/L (136-145); TOTAL PROTEIN 6.9 G/DL (5.7-8.2); TRIGLYCERIDES LEVEL 189 MG/DL (<150)
== END ==
LOC: M LABDRWAD 17:43
PROVIDERS: ATTEND Internal Medicine Cardiovascular Disease
DX: I10 Essential (primary) hypertension (principal); E78.5 Hyperlipidemia, unspecified

== ENCOUNTER → 2023-05-28 | Outpatient (CLI) | payer MEDICARE | LOC: M PLAIMG 07:50 | PROVIDERS: ATTEND Nurse Practitioner Family | DX: J45.40 Moderate persistent asthma, uncomplicated (principal); R91.8 Other nonspecific abnormal finding of lung field ==

== ENCOUNTER → 2023-07-16 | Outpatient (REF) | payer MEDICARE ==
[~2023-07-16] MED LIST changes: -MIRT-60 PO; +MIRT-89 PO
[2023-07-16 13:22] LABS: ALBUMIN 3.8 G/DL (3.2-5.2); ALKALINE PHOSPHATASE 75 U/L (46-116); ALT/SGPT 34 U/L (7.0-40); AST/SGOT 23 U/L (<34); BILIRUBIN,TOTAL 0.3 MG/DL (0.3-1.2); BLOOD UREA NITROGEN 22 MG/DL (9-23); CALCIUM LEVEL 9.3 MG/DL (8.3-10.6); CARBON DIOXIDE LEVEL 26 MMOL/L (20-31); CHLORIDE LEVEL 107 MMOL/L (98-107); CHOLESTEROL LEVEL 258 MG/DL (<200); CHOLESTEROL RISK RATIO 4.27 (<5); CREATININE FOR GFR 0.96 MG/DL (0.55-1.30); GLOMERULAR FILTRATION RATE > 60.0 (>45); GLUCOSE, FASTING 96 MG/DL (74-106); HDL CHOLESTEROL 60.3 MG/DL (>40); LDL CHOLESTEROL 156.7 MG/DL (<100); NON-HDL-C 197.7 MG/DL; POTASSIUM SERUM 4.8 MMOL/L (3.5-5.1); SODIUM LEVEL 142 MMOL/L (136-145); TOTAL PROTEIN 6.9 G/DL (5.7-8.2); TRIGLYCERIDES LEVEL 205 MG/DL (<150)
== END ==
LOC: M LAB REF 11:36
PROVIDERS: ATTEND Family Medicine Addiction Medicine
DX: E78.5 Hyperlipidemia, unspecified (principal)

== ENCOUNTER → 2023-07-24 | Outpatient (REF) | payer MEDICARE ==
[2023-07-24 13:42] LABS: THYROID STIMULATING HORMONE 0.265 uIU/ML (0.55-4.78)
[2023-07-24 13:43] LABS: FREE T4 0.87 NG/DL (0.89-1.76)
== END ==
LOC: M LAB REF 12:05
PROVIDERS: ATTEND Family Medicine Addiction Medicine
DX: R94.6 Abnormal results of thyroid function studies (principal)

== ENCOUNTER 2023-08-25 10:06 | Emergency (ER) | payer MEDICARE ==
[~2023-08-25] VITALS: Ht 154.9 cm; Wt 78.1 kg
[2023-08-25] MEDS ORDERED: LEVA45AE (10:18)
[2023-08-25] MEDS ORDERED: BUPR-597 (10:18)
[2023-08-25] MEDS ORDERED: ATOR40TA75 (10:18)
[2023-08-25] MEDS ORDERED: TRAZ-252 (10:18)
[2023-08-25] MEDS ORDERED: OMEP-173 (10:18)
[2023-08-25] MEDS ORDERED: METO1TAB32 (10:18)
[2023-08-25] MEDS ORDERED: ASPI81TA26 (10:18)
[2023-08-25] MEDS ORDERED: HYDR-3713 PO (12:22)
[2023-08-25 12:30] VITALS: BP 118/57; TEMP 97.5; O2SAT 95
== END 2023-08-25 12:32 | disposition home or self-care (01) ==
LOC: M ED 10:06
DX: S30.0XXA Contusion of lower back and pelvis, initial encounter (principal); S31.821A Laceration without foreign body of left buttock, initial encounter; W10.8XXA Fall (on) (from) other stairs and steps, initial encounter; M51.36 Other intervertebral disc degeneration, lumbar region; M47.816 Spondylosis without myelopathy or radiculopathy, lumbar region; J45.909 Unspecified asthma, uncomplicated; F41.9 Anxiety disorder, unspecified; F32.A Depression, unspecified; K21.9 Gastro-esophageal reflux disease without esophagitis; I10 Essential (primary) hypertension; Y92.009 Unspecified place in unspecified non-institutional (private) residence as the place of occurrence of the external cause; Y93.89 Activity, other specified; Y99.9 Unspecified external cause status; Z88.2 Allergy status to sulfonamides; Z88.1 Allergy status to other antibiotic agents; Z88.7 Allergy status to serum and vaccine; Z91.030 Bee allergy status; Z91.040 Latex allergy status; Z91.018 Allergy to other foods; Z79.52 Long term (current) use of systemic steroids; Z79.82 Long term (current) use of aspirin; Z79.02 Long term (current) use of antithrombotics/antiplatelets; Z79.899 Other long term (current) drug therapy

== ENCOUNTER → 2023-10-02 | Outpatient (CLI) | payer MEDICARE ==
[~2023-10-02] MED LIST changes: +ASPI81TA26; +ATOR40TA75; +BUPR-597; +LEVA45AE; +METO1TAB32; +OMEP-173; +TRAZ-252
== END ==
LOC: M RAD 13:34
PROVIDERS: ATTEND Surgery
DX: S30.0XXA Contusion of lower back and pelvis, initial encounter (principal); X58.XXXA Exposure to other specified factors, initial encounter; Y92.9 Unspecified place or not applicable; Y93.89 Activity, other specified; Y99.8 Other external cause status; M79.89 Other specified soft tissue disorders

== ENCOUNTER → 2023-10-24 | Outpatient (CLI) | payer MEDICARE, MEDICAID ==
[~2023-10-24] MED LIST changes: +LIDOCAINE 1% MDV 20ML VIAL As Ordered ONE
[2023-10-24 08:30] VITALS: TEMP 97.2
[2023-10-24 09:28] VITALS: BP 125/73; O2SAT 97
== END ==
LOC: M IRPRO 08:09
PROVIDERS: ATTEND Surgery
DX: S30.0XXA Contusion of lower back and pelvis, initial encounter (principal); X58.XXXA Exposure to other specified factors, initial encounter; Y92.9 Unspecified place or not applicable; Y93.9 Activity, unspecified

== ENCOUNTER 2023-11-06 18:42 | Emergency (ER) | payer MEDICARE, MEDICAID ==
[~2023-11-06] VITALS: Ht 154.9 cm; Wt 71.6 kg
[~2023-11-06 18:42] MED LIST changes: -LIDOCAINE 1% MDV 20ML VIAL As Ordered ONE
[2023-11-06] MEDS: methylPREDNISolone 125MG 2ML VIAL IV ONE (19:42)
[2023-11-06] MEDS: KETOROLAC 30 MG/ML 1ML VIAL IV ONE (19:42)
[2023-11-06] MEDS: NS 1,000 ML IV ONE (19:43)
[2023-11-06] MEDS ORDERED: PRED20TA PO (20:17)
[2023-11-06] MEDS ORDERED: EPIN0.3I11 IM (20:17)
[2023-11-06 21:07] VITALS: BP 94/54; TEMP 97; O2SAT 94
== END 2023-11-06 21:40 | disposition home or self-care (01) ==
LOC: M ED 18:42
DX: T63.441A Toxic effect of venom of bees, accidental (unintentional), initial encounter (principal); J45.909 Unspecified asthma, uncomplicated; F17.210 Nicotine dependence, cigarettes, uncomplicated; Z88.7 Allergy status to serum and vaccine; Z88.2 Allergy status to sulfonamides; Z88.1 Allergy status to other antibiotic agents; Z91.040 Latex allergy status; Z91.030 Bee allergy status; Z79.51 Long term (current) use of inhaled steroids; Z79.52 Long term (current) use of systemic steroids; Z79.1 Long term (current) use of non-steroidal anti-inflammatories (NSAID); Z79.899 Other long term (current) drug therapy
CPT/HCPCS: 96374; 99284; J1885; J2919

== ENCOUNTER → 2023-11-10 | Outpatient (REF) | payer MEDICARE, MEDICAID ==
[~2023-11-10] MED LIST changes: +EPIN0.3I11 IM; +PRED20TA PO
[2023-11-10 13:58] LABS: THYROID STIMULATING HORMONE 0.373 uIU/ML (0.55-4.78)
[2023-11-10 13:59] LABS: ALBUMIN 3.6 G/DL (3.2-5.2); ALKALINE PHOSPHATASE 80 U/L (46-116); ALT/SGPT 25 U/L (7.0-40); AST/SGOT 11 U/L (<34); BILIRUBIN,TOTAL 0.4 MG/DL (0.3-1.2); BLOOD UREA NITROGEN 18 MG/DL (9-23); CALCIUM LEVEL 9.2 MG/DL (8.3-10.6); CARBON DIOXIDE LEVEL 25 MMOL/L (20-31); CHLORIDE LEVEL 108 MMOL/L (98-107); CHOLESTEROL LEVEL 175 MG/DL (<200); CHOLESTEROL RISK RATIO 2.62 (<5); CREATININE FOR GFR 0.76 MG/DL (0.55-1.30); FREE T4 0.97 NG/DL (0.89-1.76); GLOMERULAR FILTRATION RATE > 60.0 (>45); GLUCOSE, FASTING 102 MG/DL (74-106); HDL CHOLESTEROL 66.6 MG/DL (>40); LDL CHOLESTEROL 85.8 MG/DL (<100); NON-HDL-C 108.4 MG/DL; POTASSIUM SERUM 4.2 MMOL/L (3.5-5.1); SODIUM LEVEL 141 MMOL/L (136-145); TOTAL PROTEIN 6.7 G/DL (5.7-8.2); TRIGLYCERIDES LEVEL 113 MG/DL (<150)
== END ==
LOC: M LAB REF 12:46
PROVIDERS: ATTEND Family Medicine Addiction Medicine
DX: E78.5 Hyperlipidemia, unspecified (principal)

== ENCOUNTER → 2024-01-07 | Outpatient (CLI) | payer MEDICARE, MEDICAID ==
[2024-01-07 15:11] LABS: THYROID STIMULATING HORMONE 1.416 uIU/ML (0.55-4.78)
[2024-01-07 15:12] LABS: FREE T4 1.07 NG/DL (0.89-1.76)
[2024-01-07 15:17] LABS: TOTAL T3 126.5 NG/DL (60.0-181.0)
== END ==
LOC: M PLALAB 11:24
PROVIDERS: ATTEND Internal Medicine Endocrinology, Diabetes & Metabolism
DX: E05.90 Thyrotoxicosis, unspecified without thyrotoxic crisis or storm (principal)

== ENCOUNTER → 2024-01-14 | Outpatient (CLI) | payer MEDICARE, MEDICAID | LOC: M WHC 08:31 | PROVIDERS: ATTEND Family Medicine Addiction Medicine | DX: R92.8 Other abnormal and inconclusive findings on diagnostic imaging of breast (principal) | CPT/HCPCS: 77065; G0279 ==

== ENCOUNTER → 2024-02-06 | Outpatient (CLI) | payer MEDICARE, MEDICAID ==
[~2024-02-06] MED LIST changes: +ALBU2.5V10; -ASPI81TA26; +ASPI81TA26 PO; -ATOR40TA75; +ATOR40TA75 PO; +BREO1INH; -BUPR-597; +BUPR-597 PO; +FAMO1TAB11 PO; +FLUT1BLS6; +METO1TAB32 PO; -OMEP-173; +OMEP-173 PO; -TRAZ-252; +TRAZ-252 PO
== END ==
LOC: M RAD 15:05
PROVIDERS: ATTEND Family Medicine Addiction Medicine
DX: R05.9 Cough, unspecified (principal)

== ENCOUNTER 2024-02-11 09:21 | Day surgery (SDC) | payer MEDICARE, MEDICAID ==
[~2024-02-11] VITALS: Ht 154.9 cm; Wt 68.0 kg
[~2024-02-11 09:21] MED LIST changes: +LIDOCAINE 2% 100MG/5ML SDV (FOR ANES.) As Ordered ONE; +NS 250 ML IV ONE; +propofoL 200 MG/20 ML VIAL As Ordered ONE
[2024-02-11 10:56] VITALS: TEMP 96.9
[2024-02-11 11:19] VITALS: BP 120/78; O2SAT 94
== END 2024-02-11 11:21 | disposition home or self-care (01) ==
LOC: M OPP 09:21
PROVIDERS: ATTEND Surgery
DX: Z12.11 Encounter for screening for malignant neoplasm of colon (principal); Z12.12 Encounter for screening for malignant neoplasm of rectum; K62.1 Rectal polyp; K57.30 Diverticulosis of large intestine without perforation or abscess without bleeding; I10 Essential (primary) hypertension; E78.00 Pure hypercholesterolemia, unspecified; E03.9 Hypothyroidism, unspecified; J45.909 Unspecified asthma, uncomplicated; E05.00 Thyrotoxicosis with diffuse goiter without thyrotoxic crisis or storm; Z79.899 Other long term (current) drug therapy; Z79.51 Long term (current) use of inhaled steroids; F17.210 Nicotine dependence, cigarettes, uncomplicated; Z90.710 Acquired absence of both cervix and uterus; Z90.49 Acquired absence of other specified parts of digestive tract; Z88.2 Allergy status to sulfonamides; Z88.1 Allergy status to other antibiotic agents; Z91.040 Latex allergy status; Z91.048 Other nonmedicinal substance allergy status; Z91.030 Bee allergy status; Z91.018 Allergy to other foods; Z88.7 Allergy status to serum and vaccine

== ENCOUNTER → 2024-02-24 | Outpatient (CLI) | payer MEDICARE, MEDICAID ==
[~2024-02-24] MED LIST changes: -CYCL5TAB PO; +CYCL5TAB4 PO; -LIDOCAINE 2% 100MG/5ML SDV (FOR ANES.) As Ordered ONE; -NS 250 ML IV ONE; -propofoL 200 MG/20 ML VIAL As Ordered ONE
== END ==
LOC: M RAD 10:18
PROVIDERS: ATTEND Nurse Practitioner Family
DX: E05.90 Thyrotoxicosis, unspecified without thyrotoxic crisis or storm (principal)

== ENCOUNTER → 2024-05-06 | Outpatient (REF) | payer MEDICARE ==
[2024-05-06 14:54] LABS: ALBUMIN 3.4 G/DL (3.2-5.2); ALKALINE PHOSPHATASE 77 U/L (35-104); ALT/SGPT 34 U/L (7.0-40); AST/SGOT 26 U/L (<34); BILIRUBIN,TOTAL 0.5 MG/DL (0.3-1.2); BLOOD UREA NITROGEN 14 MG/DL (9-23); CALCIUM LEVEL 9.3 MG/DL (8.3-10.6); CARBON DIOXIDE LEVEL 29 MMOL/L (20-31); CHLORIDE LEVEL 109 MMOL/L (98-107); CHOLESTEROL LEVEL 157 MG/DL (<200); CHOLESTEROL RISK RATIO 2.61 (<5); GLOMERULAR FILTRATION RATE > 60.0 (>45); GLUCOSE, FASTING 92 MG/DL (74-106); LDL CHOLESTEROL 74.4 MG/DL (<100); POTASSIUM SERUM 4.1 MMOL/L (3.5-5.1); SODIUM LEVEL 145 MMOL/L (136-145); TOTAL PROTEIN 6.7 G/DL (5.7-8.2); TRIGLYCERIDES LEVEL 113 MG/DL (<150)
[2024-05-06 14:56] LABS: THYROID STIMULATING HORMONE 2.022 uIU/ML (0.55-4.78)
== END ==
LOC: M LAB REF 13:35
PROVIDERS: ATTEND Family Medicine Addiction Medicine
DX: E78.5 Hyperlipidemia, unspecified (principal)

== ENCOUNTER → 2024-07-28 | Outpatient (CLI) | payer MEDICARE ==
[2024-07-28 12:14] LABS: THYROID STIMULATING HORMONE 1.212 uIU/ML (0.55-4.78)
[2024-07-28 12:17] LABS: FREE T4 1.01 NG/DL (0.89-1.76)
== END ==
LOC: M PLALAB 08:26
PROVIDERS: ATTEND Nurse Practitioner Family
DX: E05.90 Thyrotoxicosis, unspecified without thyrotoxic crisis or storm (principal)

== ENCOUNTER → 2024-11-19 | Outpatient (REF) | payer MEDICARE, MEDICAID ==
[~2024-11-19] MED LIST changes: -BUPR-597 PO; +BUPR-766 PO; +KETO-204 PO; +ONDA-282 PO; +VENL37.598 PO
== END ==
LOC: M LAB REF 14:10
PROVIDERS: ATTEND Pediatrics
DX: R35.0 Frequency of micturition (principal)

== ENCOUNTER 2024-11-20 17:08 | Emergency (ER) | payer MEDICARE, MEDICAID ==
[~2024-11-20] VITALS: Ht 154.9 cm; Wt 61.8 kg
[~2024-11-20 17:08] MED LIST changes: -KETO-204 PO; -ONDA-282 PO
[2024-11-20] MEDS: ONDANSETRON 4MG 2ML VIAL IV ONE (17:51)
[2024-11-20] MEDS: MORPHINE 2 MG/ML 1 ML VIAL IV ONE (17:51)
[2024-11-20 17:58] LABS: KETONE, URINE AUTO RFX NEGATIVE (NEGATIVE); LEUKOCYTE ESTERASE UR AUTO RFX NEGATIVE (NEGATIVE); NITRITE, URINE AUTO RFX NEGATIVE (NEGATIVE); RBC, URINE AUTO RFX 0 /HPF (0-3); SQUAM EPITHELIAL CELL UR AURFX 0 /HPF (0-6); WBC, URINE AUTO RFX 1 /HPF (0-3)
[2024-11-20 18:04] LABS: BASO # 0.0 10^3/uL (0.0-0.2); BASO % 0.5 % (0.0-1.0); EOS # 0.1 10^3/uL (0.0-0.5); EOS % 0.9 % (0.0-3.0); LYMPH # 1.4 10^3/uL (1.5-5.0); LYMPH % 21.1 % (24.0-44.0); MONO # 0.7 10^3/uL (0.0-0.8); MONO % 10.3 % (2.0-8.0); NEUTROPHILS # 4.4 10^3/uL (1.5-8.5); NEUTROPHILS % 66.9 % (36.0-66.0); PLATELET COUNT, AUTOMATED 258 10^3/uL (150-450)
[2024-11-20 18:29] LABS: ALT/SGPT 25 U/L (7.0-40); AST/SGOT 22 U/L (<34); CALCIUM LEVEL 9.0 MG/DL (8.3-10.6); CARBON DIOXIDE LEVEL 26 MMOL/L (20-31); CHLORIDE LEVEL 102 MMOL/L (98-107); CREATININE FOR GFR 0.65 MG/DL (0.55-1.30); GLOMERULAR FILTRATION RATE > 90.0 (>45); POTASSIUM SERUM 3.7 MMOL/L (3.5-5.1); SODIUM LEVEL 137 MMOL/L (136-145)
[2024-11-20] MEDS: KETOROLAC 30 MG/ML 1 ML VIAL IV ONE (19:31)
[2024-11-20 19:35] VITALS: BP 144/89; TEMP 97.2; O2SAT 96
[2024-11-20] MEDS ORDERED: KETO-204 PO (20:39)
[2024-11-20] MEDS ORDERED: ONDA-282 PO (20:39)
[2024-11-20] MEDS: KETOROLAC TROMETHAMINE 10 MG TAB PO ONE (20:50)
[2024-11-20] MEDS: ONDANSETRON 4MG ORAL DISINTEGRATING TAB PO ONE (20:50)
== END 2024-11-20 21:01 | disposition home or self-care (01) ==
LOC: M ED 17:08
DX: R10.9 Unspecified abdominal pain (principal); R31.9 Hematuria, unspecified; I10 Essential (primary) hypertension; F41.9 Anxiety disorder, unspecified; F32.9 Major depressive disorder, single episode, unspecified; J45.909 Unspecified asthma, uncomplicated; F10.10 Alcohol abuse, uncomplicated; Z87.442 Personal history of urinary calculi; Z88.1 Allergy status to other antibiotic agents; Z88.2 Allergy status to sulfonamides; Z88.7 Allergy status to serum and vaccine; Z91.040 Latex allergy status; Z91.018 Allergy to other foods; Z91.030 Bee allergy status; Z79.52 Long term (current) use of systemic steroids; Z79.82 Long term (current) use of aspirin; Z79.02 Long term (current) use of antithrombotics/antiplatelets; Z79.899 Other long term (current) drug therapy
CPT/HCPCS: 74176; 80048; 80076; 81001; 83690; 85025; 96374; 96375; 99284; J1885; J2405; J2765

== ENCOUNTER → 2025-01-07 | Outpatient (REF) | payer MEDICARE, MEDICAID ==
[~2025-01-07] MED LIST changes: +KETO-204 PO; +ONDA-282 PO
[2025-01-07 15:04] LABS: ALT/SGPT 38 U/L (7.0-40); AST/SGOT 34 U/L (<34); CALCIUM LEVEL 9.3 MG/DL (8.3-10.6); CARBON DIOXIDE LEVEL 24 MMOL/L (20-31); CHLORIDE LEVEL 106 MMOL/L (98-107); CHOLESTEROL LEVEL 242 MG/DL (<200); CHOLESTEROL RISK RATIO 2.77 (<5); CREATININE FOR GFR 0.67 MG/DL (0.55-1.30); GLOMERULAR FILTRATION RATE > 90.0 (>45); LDL CHOLESTEROL 129.9 MG/DL (<100); NON-HDL-C 154.7 MG/DL; POTASSIUM SERUM 4.3 MMOL/L (3.5-5.1); SODIUM LEVEL 138 MMOL/L (136-145); TRIGLYCERIDES LEVEL 124 MG/DL (<150)
== END ==
LOC: M LAB REF 12:03
PROVIDERS: ATTEND Family Medicine Addiction Medicine
DX: E78.5 Hyperlipidemia, unspecified (principal)

== ENCOUNTER 2025-01-15 16:45 | Emergency (ER) | payer MEDICARE, MEDICAID ==
[~2025-01-15 16:45] MED LIST changes: -ALBU2.5V10; +ALBU2.5V10 INH; -BREO1INH; +BREO1INH INH
[2025-01-15] MEDS ORDERED: DILT30TA PO (16:57)
[2025-01-15] MEDS: KETOROLAC 30 MG/ML 1 ML VIAL IV ONE (20:46)
[2025-01-15] MEDS: METHOCARBAMOL 1,000 MG/10 ML VIAL IV ONE (20:46)
[2025-01-15 20:52] LABS: BASO # 0.0 10^3/uL (0.0-0.2); BASO % 0.5 % (0.0-1.0); EOS # 0.1 10^3/uL (0.0-0.5); EOS % 1.0 % (0.0-3.0); LYMPH # 2.1 10^3/uL (1.5-5.0); LYMPH % 35.6 % (24.0-44.0); MONO # 0.6 10^3/uL (0.0-0.8); MONO % 9.5 % (2.0-8.0); NEUTROPHILS # 3.1 10^3/uL (1.5-8.5); NEUTROPHILS % 53.2 % (36.0-66.0); PLATELET COUNT, AUTOMATED 271 10^3/uL (150-450)
[2025-01-15 21:19] LABS: CALCIUM LEVEL 8.3 MG/DL (8.3-10.6); CARBON DIOXIDE LEVEL 25 MMOL/L (20-31); CHLORIDE LEVEL 103 MMOL/L (98-107); CREATININE FOR GFR 0.56 MG/DL (0.55-1.30); GLOMERULAR FILTRATION RATE > 90.0 (>45); MAGNESIUM LEVEL 1.6 MG/DL (1.8-2.4); POTASSIUM SERUM 4.3 MMOL/L (3.5-5.1); SODIUM LEVEL 139 MMOL/L (136-145)
[2025-01-15] MEDS ORDERED: METH-1165 PO (21:39)
[2025-01-15] MEDS ORDERED: NAPR-837 PO (21:39)
[2025-01-15 21:45] VITALS: BP 119/63; TEMP 97.3; O2SAT 93
== END 2025-01-15 21:55 | disposition home or self-care (01) ==
LOC: M ED 16:45
DX: M62.838 Other muscle spasm (principal); F17.200 Nicotine dependence, unspecified, uncomplicated; Z96.642 Presence of left artificial hip joint; Z88.2 Allergy status to sulfonamides; Z88.1 Allergy status to other antibiotic agents; Z91.040 Latex allergy status; Z88.7 Allergy status to serum and vaccine; Z91.030 Bee allergy status; Z91.018 Allergy to other foods; Z79.52 Long term (current) use of systemic steroids; Z79.82 Long term (current) use of aspirin; Z79.02 Long term (current) use of antithrombotics/antiplatelets; Z79.899 Other long term (current) drug therapy
CPT/HCPCS: 73502; 80048; 83735; 85025; 96374; 99284; J1885; J2800

== ENCOUNTER 2025-01-17 13:40 | Observation (INO) | payer MEDICARE, MEDICAID ==
[~2025-01-17] VITALS: Ht 154.9 cm; Wt 60.0 kg
[~2025-01-17 13:40] MED LIST changes: +DILT30TA PO; +METH-1165 PO; +NAPR-837 PO
[2025-01-17] MEDS: ONDANSETRON 4MG 2ML VIAL IV ONE (18:25)
[2025-01-17] MEDS: MORPHINE 4 MG/ML 1 ML VIAL IV PRN ×2 (18:28→20:30)
[2025-01-17 21:36] LABS: BASO # 0.0 10^3/uL (0.0-0.2); BASO % 0.6 % (0.0-1.0); EOS # 0.2 10^3/uL (0.0-0.5); EOS % 2.7 % (0.0-3.0); LYMPH # 2.2 10^3/uL (1.5-5.0); LYMPH % 35.1 % (24.0-44.0); MONO # 0.6 10^3/uL (0.0-0.8); MONO % 10.1 % (2.0-8.0); NEUTROPHILS # 3.3 10^3/uL (1.5-8.5); NEUTROPHILS % 51.2 % (36.0-66.0); PLATELET COUNT, AUTOMATED 285 10^3/uL (150-450)
[2025-01-17 21:43] LABS: ERYTHROCYTE SEDIMENTATION RATE 29 mm/hr (0-30)
[2025-01-17 21:57] LABS: ALT/SGPT 45 U/L (7.0-40); AST/SGOT 43 U/L (<34); C REACTIVE PROTEIN QUANTITATIV < 0.50 MG/DL (<1.0); CALCIUM LEVEL 9.0 MG/DL (8.3-10.6); CARBON DIOXIDE LEVEL 24 MMOL/L (20-31); CHLORIDE LEVEL 108 MMOL/L (98-107); CREATININE FOR GFR 0.55 MG/DL (0.55-1.30); GLOMERULAR FILTRATION RATE > 90.0 (>45); POTASSIUM SERUM 4.2 MMOL/L (3.5-5.1); SODIUM LEVEL 141 MMOL/L (136-145)
[2025-01-17] MEDS: LIDOCAINE 5% PATCH TD ONE (22:31)
[2025-01-17] MEDS: KETOROLAC 30 MG/ML 1 ML VIAL IV ONE (22:31)
[2025-01-17] MEDS ORDERED: REST0.05 OU (22:56)
[2025-01-17] MEDS ORDERED: HOME MED LIST COMPLETE! XX SCH (23:05)
[2025-01-18] MEDS: CYCLOBENZAPRINE 5 MG TABLET PO PRN (00:40)
[2025-01-18] MEDS: ONDANSETRON 4MG 2ML VIAL IV ONE (02:48)
[2025-01-18] MEDS: MORPHINE 4 MG/ML 1 ML VIAL IV PRN ×2 (03:09→10:09)
[2025-01-18] MEDS: ADVAIR HFA 115/21 MCG INHALER INH SCH (08:44)
[2025-01-18] MEDS ORDERED: VILANTEROL INH SCH (09:00)
[2025-01-18] MEDS ORDERED: RESTASIS 0.05% OU SCH (09:00)
[2025-01-18] MEDS ORDERED: FLUTICASONE FUROATE INH SCH (09:00)
[2025-01-18] MEDS ORDERED: [UNRECOGNIZED DRUG - OTHER] OU SCH (09:00)
[2025-01-18] MEDS: METOPROLOL SUCC. 25 MG *XL* TAB PO SCH (09:19)
[2025-01-18] MEDS: VENLAFAXINE **XR** 37.5 MG CAPSULE PO SCH (09:19)
[2025-01-18] MEDS: ASPIRIN 81 MG ENTERIC TABLET PO SCH (09:19)
[2025-01-18] MEDS: OMEPRAZOLE 20MG CAP PO SCH (09:19)
[2025-01-18] MEDS: KETOROLAC 30 MG/ML 1 ML VIAL IV PRN (09:20)
[2025-01-18] MEDS: dilTIAZem 30 MG TAB PO SCH (09:20)
[2025-01-18] MEDS: SERTRALINE 100 MG TAB PO SCH (09:20)
[2025-01-18] MEDS: ENOXAPARIN 40 MG/0.4 ML SYRINGE (J1650 PER 10MG) SC SCH (13:52)
[2025-01-18] MEDS: PERCOCET 5MG/325MG TAB PO PRN (14:14)
[2025-01-18] MEDS: GABAPENTIN 100 MG CAP PO SCH (16:13)
[2025-01-18] MEDS: ONDANSETRON 4MG ORAL DISINTEGRATING TAB PO PRN (18:59)
[2025-01-18 20:35] VITALS: O2SAT 86
[2025-01-18 20:44] VITALS: BP 141/76; TEMP 97.8; O2SAT 94
[2025-01-18] MEDS ORDERED: ISOVUE-370 76% 100 ML VIAL As Ordered ONE (20:50)
[2025-01-18] MEDS: traZODone 50 MG TAB PO SCH (21:15)
[2025-01-18] MEDS: ATORVASTATIN 20 MG TAB PO SCH (21:15)
[2025-01-18 22:00] VITALS: O2SAT 93
[2025-01-18 23:00] VITALS: O2SAT 94
[2025-01-18 23:34] VITALS: BP 121/69; TEMP 97.8; O2SAT 93
[2025-01-19] MEDS: PERCOCET 5MG/325MG TAB PO PRN (02:41)
[2025-01-19 03:27] VITALS: BP 104/67; TEMP 98.1; O2SAT 94
[2025-01-19 09:01] VITALS: BP 108/75
[2025-01-19 14:00] VITALS: BP 108/75; TEMP 98.2; O2SAT 95
[2025-01-19 14:10] LABS: BASO # 0.0 10^3/uL (0.0-0.2); BASO % 0.3 % (0.0-1.0); EOS # 0.2 10^3/uL (0.0-0.5); EOS % 2.2 % (0.0-3.0); LYMPH # 1.2 10^3/uL (1.5-5.0); LYMPH % 16.6 % (24.0-44.0); MONO # 0.5 10^3/uL (0.0-0.8); MONO % 7.3 % (2.0-8.0); NEUTROPHILS # 5.3 10^3/uL (1.5-8.5); NEUTROPHILS % 73.3 % (36.0-66.0); PLATELET COUNT, AUTOMATED 240 10^3/uL (150-450)
[2025-01-19 14:33] LABS: ALT/SGPT 49.0 U/L (7.0-40); AST/SGOT 42.0 U/L (<34)
[2025-01-19 14:48] LABS: CALCIUM LEVEL 8.7 MG/DL (8.3-10.6); CARBON DIOXIDE LEVEL 26 MMOL/L (20-31); CHLORIDE LEVEL 107 MMOL/L (98-107); CREATININE FOR GFR 0.72 MG/DL (0.55-1.30); GLOMERULAR FILTRATION RATE > 90.0 (>45); POTASSIUM SERUM 4.0 MMOL/L (3.5-5.1); SODIUM LEVEL 142 MMOL/L (136-145)
[2025-01-19] MEDS: ALBUTEROL 90 MCG/ACT 8 GM HFA INHALER INH PRN (20:46)
[2025-01-19 21:05] VITALS: BP 111/74; TEMP 97.2; O2SAT 96
[2025-01-20 06:18] VITALS: BP 112/75; TEMP 98.2; O2SAT 97
[2025-01-20 09:46] VITALS: BP 112/75
[2025-01-20] MEDS: predniSONE 20 MG TAB PO SCH (09:46)
[2025-01-20] MEDS ORDERED: DICL50TA2 PO (12:34)
[2025-01-20] MEDS ORDERED: LIDO1ADH93 TOP (12:34)
[2025-01-20] MEDS ORDERED: PRED10TA2 PO (12:34)
== END 2025-01-20 13:20 | disposition home health service (06) ==
LOC: EDBD 13:40 → M ED 13:40 → M ED INP 13:41 → M MS5PR 01-19 02:54
PROVIDERS: ADMIT Internal Medicine; ATTEND Internal Medicine
DX: M70.62 Trochanteric bursitis, left hip (principal); J45.909 Unspecified asthma, uncomplicated; I10 Essential (primary) hypertension; F39 Unspecified mood [affective] disorder; K21.9 Gastro-esophageal reflux disease without esophagitis; Z79.899 Other long term (current) drug therapy; Z79.82 Long term (current) use of aspirin; Z88.7 Allergy status to serum and vaccine; Z91.040 Latex allergy status; Z88.2 Allergy status to sulfonamides; Z88.0 Allergy status to penicillin; Z91.018 Allergy to other foods; Z96.642 Presence of left artificial hip joint; R53.1 Weakness; E78.5 Hyperlipidemia, unspecified
CPT/HCPCS: 36415; 70450; 70496; 70498; 72148; 72192; 73552; 73721; 80048; 80076; 84145; 84550; 85025; 85652; 86140; 93005; 94640; 96372; 96374; 96375; 96376; 97165; 97530; 97535; 99285; G0378; J1650; J1885; J2405; J2919; J7512; Q9967